=== PATIENT | male | born 1985 | race Hispanic/Latino ===

== ENCOUNTER 2018-02-10 10:20 | Emergency (ER) | payer SELFPAY ==
[~2018-02-10 10:20] MED LIST: LISI40TA4 PO; METO-408 PO
== END 2018-02-10 11:15 | disposition home or self-care (01) ==
LOC: EDH 10:20
DX: N50.819 Testicular pain, unspecified (principal); I10 Essential (primary) hypertension; E07.9 Disorder of thyroid, unspecified; I25.2 Old myocardial infarction; Z88.8 Allergy status to other drugs, medicaments and biological substances
CPT/HCPCS: 99281

== ENCOUNTER 2018-03-14 11:23 | Emergency (ER) | payer SELFPAY ==
[2018-03-14 12:11] LABS: BASOPHILS % (AUTO) 0.6 % (0.0-5.0); EOSINOPHILS % (AUTO) 0.5 % (0.0-8.0); HEMATOCRIT 42.6 % (42-54); LYMPHOCYTES % (AUTO) 17.3 % (21.0-51.0); MEAN CORPUSCULAR HEMOGLOBIN 31.2 pg (27.0-33.0); MEAN CORPUSCULAR HGB CONC 35.7 g/dL (32.0-36.0); MEAN CORPUSCULAR VOLUME 87.5 fL (79-99); MONOCYTES % (AUTO) 6.6 % (3.0-13.0); PLATELET COUNT (AUTO) 279 K/uL (130-400); RED BLOOD CELL COUNT(AUTO) 4.87 MIL/uL (4.50-6.20); RED CELL DISTRIBUTION WIDTH 13.6 % (11.0-15.5); WHITE BLOOD COUNT (AUTO) 10.5 K/uL (4.8-10.8)
[2018-03-14 12:16] LABS: APPEARANCE,URINE Clear (CLEAR); BILIRUBIN,URINE Negative (NEGATIVE); COLOR,URINE Yellow (YELLOW); GLUCOSE, URINE (UA) Negative (NEGATIVE); KETONES,URINE Negative (NEGATIVE); LEUKOCYTE ESTERASE ,URINE Negative (NEGATIVE); NITRATE,URINE Negative (NEGATIVE); OCCULT BLOOD,URINE Negative (NEGATIVE); PH,URINE 5.5 (5.0-8.0); PROTEIN,URINE Negative (NEGATIVE)
[2018-03-14 12:19] LABS: AMPHET/METH SCREEN,URINE NEGATIVE (NEGATIVE); BARBITURATE SCREEN, URINE NEGATIVE (NEGATIVE); BENZODIAZEPINES SCREEN,URINE NEGATIVE (NEGATIVE); CANNABINOID SCREEN,URINE NEGATIVE (NEGATIVE); COCAINE SCREEN,URINE NEGATIVE (NEGATIVE); OPIATE SCREEN,URINE NEGATIVE (NEGATIVE); PHENCYCLIDINE SCREEN,URINE NEGATIVE (NEGATIVE)
[2018-03-14 12:29] LABS: CARBON DIOXIDE 30 mmol/L (21-32); CHLORIDE 103 mmol/L (101-111); CREATININE 0.7 mg/dL (0.5-1.5); GLOMERULAR FILTR. RATE CALC 140 mL/min (>60); GLUCOSE,RANDOM 101 mg/dL (70-105); POTASSIUM 4.5 mmol/L (3.5-5.1); SODIUM SERUM 141 mmol/L (136-145); UREA NITROGEN, BLOOD 13 mg/dL (7-18)
[2018-03-14 12:42] LABS: ALANINE AMINOTRANSFERASE 38 U/L (12-78); ALBUMIN 3.7 g/dL (3.5-5.0); ASPARTATE AMINOTRANSFERASE 27 U/L (10-37); BILIRUBIN,TOTAL 0.8 mg/dL (0.2-1.0); CREATINE KINASE, TOTAL 90 U/L (21-232); LIPASE 60 U/L (114-286); TOTAL PROTEIN, SERUM 7.8 g/dL (6.0-8.3)
[2018-03-14 12:43] LABS: ACETAMINOPHEN < 1 mcg/mL (10-29); SALICYLATE < 2.8 mg/dL (2.8-20.0)
== END 2018-03-14 14:12 | disposition home or self-care (01) ==
LOC: EDH 11:23
DX: M79.602 Pain in left arm (principal); R20.2 Paresthesia of skin; I10 Essential (primary) hypertension; E07.9 Disorder of thyroid, unspecified; Z88.8 Allergy status to other drugs, medicaments and biological substances
CPT/HCPCS: 36415; 80053; 80305; 81003; 82550; 82553; 83690; 84484; 85025; 93005; 99285; G0480; G0481

== ENCOUNTER 2019-08-10 11:41 | Emergency (ER) | payer SELFPAY | END 2019-08-10 11:55 | disposition home or self-care (01) | LOC: EDH 11:41 | DX: J02.9 Acute pharyngitis, unspecified (principal) ==

== ENCOUNTER 2020-01-25 19:28 | Emergency (ER) | payer OTHER ==
[2020-01-25] MEDS ORDERED: DIAZEPAM 5 MG TABLET ONE (20:16)
[2020-01-25] MEDS ORDERED: ACETAMINOPHEN EXTRA STRENGTH 500 MG TABLET ONE (20:16)
[2020-01-25 20:32] LABS: BASOPHILS % (AUTO) 0.4 % (0.0-5.0); EOSINOPHILS % (AUTO) 1.4 % (0.0-8.0); HEMATOCRIT 40.3 % (42-54); LYMPHOCYTES % (AUTO) 37.8 % (21.0-51.0); MEAN CORPUSCULAR HGB CONC 32.5 g/dL (32.0-36.0); MEAN CORPUSCULAR VOLUME 89.4 fL (79-99); MONOCYTES % (AUTO) 11.8 % (3.0-13.0); NEUTROPHILS % (AUTO) 48.3 % (40.0-77.0); PLATELET COUNT (AUTO) 310 K/uL (130-400); RED BLOOD CELL COUNT(AUTO) 4.51 MIL/uL (4.50-6.20); RED CELL DISTRIBUTION WIDTH 12.4 % (11.0-15.5); WHITE BLOOD COUNT (AUTO) 7.7 K/uL (4.8-10.8)
[2020-01-25 20:34] LABS: APPEARANCE,URINE Clear (CLEAR); BILIRUBIN,URINE Negative (NEGATIVE); COLOR,URINE Yellow (YELLOW); GLUCOSE, URINE (UA) Negative (NEGATIVE); KETONES,URINE Negative (NEGATIVE); LEUKOCYTE ESTERASE ,URINE Negative (NEGATIVE); NITRATE,URINE Negative (NEGATIVE); OCCULT BLOOD,URINE Negative (NEGATIVE); PROTEIN,URINE Negative (NEGATIVE)
[2020-01-25 20:44] LABS: CREATININE 0.9 mg/dL (0.5-1.5); POTASSIUM 4.1 mmol/L (3.5-5.1)
== END 2020-01-25 21:45 | disposition home or self-care (01) ==
LOC: EDH 19:28
DX: M54.6 Pain in thoracic spine (principal); I10 Essential (primary) hypertension; F31.9 Bipolar disorder, unspecified; E03.9 Hypothyroidism, unspecified; Z88.1 Allergy status to other antibiotic agents; Z87.891 Personal history of nicotine dependence
CPT/HCPCS: 36415; 80048; 81003; 85025

== ENCOUNTER 2022-06-17 09:21 | Emergency (ER) | payer OTHER ==
[~2022-06-17] VITALS: Ht 175.3 cm; Wt 152.0 kg
[~2022-06-17 09:21] MED LIST changes: -LISI40TA4 PO; +LISI40TA9 PO
[2022-06-17] MEDS ORDERED: KETOROLAC 60 MG VIAL (30MG/ML) IM ONE (09:30)
[2022-06-17] MEDS ORDERED: DEXAMETHASONE SOD PHOSPHATE 4 MG/ML 1ML VIAL IM ONE (09:30)
[2022-06-17 09:39] VITALS: BP 152/97
[2022-06-17] MEDS ORDERED: DOXY100C5 PO (10:39)
== END 2022-06-17 10:45 | disposition home or self-care (01) ==
LOC: EDH 09:21
DX: J06.9 Acute upper respiratory infection, unspecified (principal); J03.90 Acute tonsillitis, unspecified; Z20.822 Contact with and (suspected) exposure to COVID-19; I10 Essential (primary) hypertension; Z88.1 Allergy status to other antibiotic agents; Z79.899 Other long term (current) drug therapy
CPT/HCPCS: 99284; 71045; 87635; 87880; 87804 ×2; 96372 ×2; J1100; C9803; J1885

== ENCOUNTER → 2023-09-19 | Outpatient (CLI) | payer MEDICAID ==
[~2023-09-19] MED LIST changes: +DOXY100C5 PO; +PRED20TA3 PO
[2023-09-19 21:49] VITALS: PULSE 87; RESP 24
[2023-09-19 22:30] VITALS: PULSE 11; RESP 24
[2023-09-19 22:54] VITALS: PULSE 109; RESP 14
[2023-09-19 23:33] VITALS: PULSE 108; RESP 22
[2023-09-20] VITALS (11 sets, daily range): PULSE 68–109; RESP 18–22
== END | disposition home or self-care (01) ==
LOC: SLP 10:00
PROVIDERS: ATTEND Internal Medicine
DX: G47.30 Sleep apnea, unspecified (principal)
CPT/HCPCS: 95810

== ENCOUNTER → 2023-10-03 | Outpatient (CLI) | payer MEDICAID ==
[2023-10-03] VITALS (9 sets, daily range): PULSE 65–94; RESP 16–30
[2023-10-04] VITALS (11 sets, daily range): PULSE 59–80; RESP 12–24
== END | disposition home or self-care (01) ==
LOC: SLP 20:38
PROVIDERS: ATTEND Internal Medicine
DX: G47.33 Obstructive sleep apnea (adult) (pediatric) (principal)
CPT/HCPCS: 95811